=== PATIENT | female | born 1995 | race Caucasian/White ===

== ENCOUNTER 2018-06-26 20:19 | Emergency (ER) | payer OTHER ==
[~2018-06-26] VITALS: Ht 152.4 cm; Wt 86.0 kg
[2018-06-26 20:23] VITALS: Ht 152.4 cm; Wt 86.0 kg
[2018-06-26] MEDS ORDERED: FAMOTIDINE 20 MG INJ IV STA (21:30)
[2018-06-26] MEDS ORDERED: BELLADONNA/PHENOBARBITAL TAB PO STA (21:30)
[2018-06-26] MEDS ORDERED: SOD CHLORIDE 0.9% 1,000 ML IV STA (21:30)
[2018-06-26] MEDS ORDERED: ONDANSETRON 4 MG INJ IV STA ×2 (21:30→22:41)
[2018-06-26] MEDS ORDERED: LIDOCAINE/MYLANTA 40 ML BTL PO STA (21:30)
[2018-06-26] MEDS ORDERED: morphine 4 MG/ML VIAL IV STA (22:41)
--- NOTE | 2018-06-26 23:11 | ERD ---
ER Documentation Chief Complaint Chief Complaint epigastric pain left to right side since afternoon HPI This is a 22-year-old female who presents with epigastric pain that radiates to her left and right upper quadrants with associated nausea and vomiting. Pain is worse after eating. No fever. Symptoms began today. Pain is burning in nature. Denies possibility of . ROS All systems reviewed and are negative except as per history of present illness. Allergies Allergies: Coded Allergies: No Known Allergy (Unverified , 06/26/18) PMhx/Soc Medical and Surgical Hx: pt denies Medical Hx, pt denies Surgical Hx Hx Alcohol Use: No Hx Substance Use: No Hx Tobacco Use: No Smoking Status: Never smoker FmHx Family History: No diabetes Physical Exam Vitals Vital Signs Date Temp Pulse Resp B/P (MAP) Pulse Ox O2 O2 Flow FiO2 Time Delivery Rate 06/26/18 97.5 100 22 141/71 98 20:23 (94) Physical Exam INITIAL VITAL SIGNS: Reviewed by me GENERAL: Awake, alert and oriented x 4, well appearing, nontoxic, speaking in full sentences. No acute distress HEAD: Atraumatic NECK: Supple. No masses. Full range of motion. No meningismus. No midline ten derness. EYES: EOMI. PERRL. RESPIRATORY: Clear to auscultation bilaterally. Symmetric chest wall rise. No wheezing or rales. No accessory muscle use. CV: Regular rate and rhythm. No murmurs, rubs, or gallops. ABDOMEN: Soft, non-distended. Positive Marsh sign, negative McBurneys point tenderness. No CVA tenderness bilaterally. No guarding. No rebound. : Deffered. Result Diagram: 06/26/18215406/26/182154 Results 24 hrs Laboratory Tests Test 06/26/18 21:52 06/26/18 21:55 POC Beta HCG, Qualitative NEGATIVE White Blood Count 13.8 10^3/ul Red Blood Count 4.90 10^6/ul Hemoglobin 13.4 g/dl Hematocrit 42.4 % Mean Corpuscular Volume 86.5 fl Mean Corpuscular Hemoglobin 27.3 pg Mean Corpuscular Hemoglobin Concent 31.6 g/dl Red Cell Distribution Width 13.4 % Platelet Count 291 10^3/UL Mean Platelet Volume 11.3 fl Immature Granulocytes % 0.400 % Neutrophils % 75.7 % Lymphocytes % 14.8 % Monocytes % 8.3 % Eosinophils % 0.4 % Basophils % 0.4 % Nucleated Red Blood Cells % 0.0 /100WBC Immature Granulocytes # 0.060 10^3/ul Neutrophils # 10.5 10^3/ul Lymphocytes # 2.0 10^3/ul Monocytes # 1.2 10^3/ul Eosinophils # 0.1 10^3/ul Basophils # 0.1 10^3/ul Nucleated Red Blood Cells # 0.0 10^3/ul Urine Color LILIAN Urine Clarity CLOUDY Urine pH 6.0 Urine Specific Mclean 1.029 Urine Ketones TRACE mg/dL Urine Nitrite NEGATIVE mg/dL Urine Bilirubin NEGATIVE mg/dL Urine Urobilinogen 2+ mg/dL Urine Leukocyte Esterase 3+ Domingo/ul Urine Microscopic RBC 15 /HPF Urine Microscopic WBC 32 /HPF Urine Squamous Epithelial Cells MANY /HPF Urine Bacteria FEW /HPF Urine Mucus MODERATE /HPF Urine Hemoglobin 1+ mg/dL Urine Glucose NEGATIVE mg/dL Urine Total Protein 1+ mg/dl Sodium Level 143 mmol/L Potassium Level 4.0 mmol/L Chloride Level 107 mmol/L Carbon Dioxide Level 22 mmol/L Anion Gap 14 Blood Urea Nitrogen 10 mg/dl Creatinine 0.72 mg/dl Est Glomerular Filtrat Rate mL/min > 60 mL/min Glucose Level 101 mg/dl Calcium Level 9.6 mg/dl Total Bilirubin 0.5 mg/dl Direct Bilirubin 0.00 mg/dl Indirect Bilirubin 0.5 mg/dl Aspartate Amino Transf (AST/SGOT) 178 IU/L Alanine Aminotransferase (ALT/SGPT) 76 IU/L Alkaline Phosphatase 120 IU/L Total Protein 8.3 g/dl Albumin 4.6 g/dl Globulin 3.70 g/dl Albumin/Globulin Ratio 1.24 Lipase 152 U/L Current Medications Medications Dose Sig/Anayeli Start Time Status Last (Trade) Ordered Route PRN Stop Time Admin Dose Reason Admin Sodium 1,000 ml @ Q1H STAT 06/26/18 DC 06/26/18 Chloride 1,000 mls/hr IV 21:30 06/26/18 21:57 22:29 Ondansetron 4 mg ONCE STAT 06/26/18 DC 06/26/18 HCl (Zofran IV 21:30 06/26/18 21:58 Inj) 21:32 Famotidine 20 mg ONCE STAT 06/26/18 DC 06/26/18 (Pepcid Iv) IV 21:30 06/26/18 21:58 21:32 40 ml ONCE STAT 06/26/18 DC 06/26/18 Miscellaneous PO 21:30 06/26/18 21:57 Medication 21:32 (Gi Cocktail (2)) Belladonna/ 2 tab ONCE STAT 06/26/18 DC 06/26/18 Phenobarbital PO 21:30 06/26/18 21:58 () 21:32 Morphine 4 mg ONCE STAT 06/26/18 DC Sulfate IV 22:41 06/26/18 (morphine) 22:42 Ondansetron 4 mg ONCE STAT 06/26/18 DC HCl (Zofran IV 22:41 06/26/18 Inj) 22:42 Procedures/MDM The differential diagnosis includes but is not limited to appendicitis, cholelithiasis, cholecystitis, pancreatitis, hepatitis, gastritis, peptic ulcer disease, bowel obstruction, diverticulitis, renal disease including stones, tors ion, AAA, pyelonephritis, and others. Findings consistent with cholelithiasis. No evidence of cholecystitis. She also has urinary tract infection. She was given GI cocktail and Pepcid with minimal improvement and she was given morphine with significant improvement of her pain. She was given Rocephin through the IV. Discharged with Keflex ibuprofen Zofran and Jeff. Patient counseled regarding my diagnostic impression and care plan. Prior to discharge all questions answered. Pt agrees with treatment plan and understands strict return precautions. Pt is instructed to follow up with primary care provider within 24- 48 hours. Precautionary instructions provided including instructions to return to the ER if not improving or for any worsening or changing symptoms or concerns. Departure Diagnosis: Primary Impression: Cholelithiasis Additional Impression: Cystitis Condition: Stable JOSE E MILLER PA-C Jun 26, 2018 23:11
[2018-06-26] MEDS ORDERED: HYDR-4011 PO (23:12)
[2018-06-26] MEDS ORDERED: IBUP800T48 PO (23:12)
[2018-06-26] MEDS ORDERED: CEPH-443 PO (23:12)
[2018-06-26] MEDS ORDERED: ONDA4TAB14 PO (23:12)
[2018-06-26] MEDS ORDERED: CEFTRIAXONE 1 GM/50 ML (PMX) 50 ML IVPB ONE (23:30)
[2018-06-27 00:38] VITALS: BP 114/74; PULSE 98; RESP 16
== END 2018-06-27 00:38 | disposition home or self-care (01) ==
LOC: FTE 20:19
DX: K80.20 Calculus of gallbladder without cholecystitis without obstruction (principal); N30.90 Cystitis, unspecified without hematuria
CPT/HCPCS: 76705; 80053; 81001; 81025; 83690; 85025; 96374; 96375; 96376; 99285; J0696; J2270; J2405; J7030